=== PATIENT | male | born 1970 | race African-American/Black ===

== ENCOUNTER 2017-12-13 14:38 | Emergency (ER) | payer SELFPAY ==
[2017-12-13 15:45] VITALS: BP 124/85
== END 2017-12-13 15:43 | disposition left against medical advice (07) ==
LOC: ED 14:38
DX: M25.569 Pain in unspecified knee (principal); R68.84 Jaw pain; Z53.21 Procedure and treatment not carried out due to patient leaving prior to being seen by health care provider